=== PATIENT | male | born 1990 | race Caucasian/White ===

== ENCOUNTER 2019-01-13 23:21 | Emergency (ER) | payer MEDICAID, OTHER ==
[~2019-01-13] VITALS: Ht 177.8 cm; Wt 58.8 kg
[2019-01-13 23:24] VITALS: BP 167/116
[2019-01-14 00:27] LABS: CLARITY,URINE CLEAR (Clear); COLOR,URINE YELLOW (Yellow); GLUCOSE, URINE NEGATIVE (Neg); KETONES,URINE NEGATIVE (Neg); LEUKOCYTE ESTERASE ,URINE NEGATIVE (Neg); NITRITES, URINE NEGATIVE (Neg); OCCULT BLOOD,URINE TRACE-INTACT (Neg); PH,URINE 6.5 (4.8-8.0); PROTEIN,URINE NEGATIVE (Neg); UA COLLECTION TYPE NON-SPECIFIED; UROBILINOGEN,URINE 0.2 E.U/dL (0.2-1.0)
[2019-01-14 00:32] LABS: BACTERIA,URINE NONE SEEN /HPF (Neg); MUCUS STRANDS NONE SEEN /LPF (Neg); RBC,URINE 0-2 /HPF (0-2); SQUAMOUS EPITHELIAL CELL,UR NONE SEEN /LPF (FEW); WBC,URINE 0-4 /HPF (0-4)
[2019-01-14] MEDS ORDERED: PHEN-716 PO (01:05)
[2019-01-14] MEDS ORDERED: phenazopyridine 100mg tablet PO ONE (01:05)
--- NOTE | 2019-01-19 11:48 | NUR ---
PT CULTURE RESULT POSISITVE FOR CHLAMYDIA PT CONTACTED PRESCRIPTION FOR AZITHROMYCIN 1GM PO X1 FROM DR CORDOVA CALLED IN TO VISHAL JC AND PT INSTRUCTED TO OBSTAIN FROM SEXUAL INTERCOURSE X 1 WEEK POST TREATMENT.
== END 2019-01-14 01:16 | disposition home or self-care (01) ==
LOC: ER 23:22
DX: R30.0 Dysuria (principal); R31.9 Hematuria, unspecified; Z79.899 Other long term (current) drug therapy
CPT/HCPCS: 36415; 81001; 87491; 99283

== ENCOUNTER 2020-01-17 20:20 | Emergency (ER) | payer MEDICAID ==
[~2020-01-17] VITALS: Ht 175.3 cm; Wt 70.5 kg
[~2020-01-17 20:20] MED LIST: PHEN-716 PO
[2020-01-17 20:29] VITALS: BP 139/99
[2020-01-17] MEDS ORDERED: ROBDML PO (22:18)
[2020-01-17] MEDS ORDERED: FLUT16SP2 BOTHNARES (22:18)
== END 2020-01-17 22:38 | disposition home or self-care (01) ==
LOC: ER 20:20
DX: J06.9 Acute upper respiratory infection, unspecified (principal); R51 Headache; R05 Cough; Z72.89 Other problems related to lifestyle; Z79.899 Other long term (current) drug therapy
CPT/HCPCS: 99283